=== PATIENT | male | born 1955 | race Caucasian/White ===

== ENCOUNTER 2018-04-09 11:22 | Observation (INO) ==
[2018-04-09] MEDS ORDERED: ONDANSETRON 4 MG/2 ML VIAL IVP ONE (12:23)
[2018-04-09] MEDS ORDERED: Sodium Chloride 0.9% 1,000 ML PRIMARY IV ONE (12:23)
[2018-04-09] MEDS ORDERED: HYDROCORTISONE 100 MG/2 ML IVP ONE (12:26)
[2018-04-09 12:33] LABS: BASOPHILS # (AUTO) 0.05 10*3/UL; BASOPHILS % (AUTO) 0.4 % (0-1); EOSINOPHILS # (AUTO) 0.41 10*3/UL; EOSINOPHILS % (AUTO) 3.5 % (0-8); Hematocrit [HCT] 46.5 % (42.0-52.0); Hemoglobin [HGB] 17.1 g/dL (14.0-18.0); LYMPHOCYTES # (AUTO) 2.58 10*3/uL; MEAN CORPUSCULAR HEMOGLOBIN 28.3 PG (27-31); MEAN CORPUSCULAR HGB CONC 36.8 g/dL (33-37); MEAN PLATELET VOLUME 10.2 FL (7.4-12.2); MONOCYTES % (AUTO) 18.2 % (5-15); NEUTROPHILS # (AUTO) 6.36 10*3/UL; NEUTROPHILS % (AUTO) 55.1 % (50-80); RED BLOOD COUNT 6.04 10^6/uL (4.70-6.10)
[2018-04-09 12:38] LABS: BUN/CREATININE RATIO 8.33 (6-20); PLATELET MORPHOLOGY COMMENT NORMAL MORPHOLOGY (NORM); RBC MORPHOLOGY COMMENT NORMAL MORPHOLOGY (NORM); SERUM ALBUMIN 4.5 g/dL (3.5-4.8); WBC MORPHOLOGY COMMENT NORMAL MORPHOLOGY (NORM)
--- NOTE | 2018-04-09 12:42 | EKG ---
[address] [address] Measurements Intervals [place] Rate: 93 P: 61 TN: 178 QRS: -47 QRSD: 117 T: 84 QT: 387 QTc: 437 Interpretive Statements SINUS RHYTHM LEFT ANTERIOR FASCICULAR BLOCK NONSPECIFIC T-WAVE ABNORMALITY No previous ECG available for comparison Electronically Signed On 04-09-18 16:17:44 MDT by Jose Larson [email or web address]
[2018-04-09] MEDS ORDERED: Magnesium Sulfate 2gm (Premix) 2 GM/50 ML BAG IV ONE (12:52)
[2018-04-09 12:58] LABS: LIPASE 311 IU/L (23-300)
--- NOTE | 2018-04-09 13:49 | DI ---
EXAM: CT Abdomen and Pelvis Without Intravenous Contrast CLINICAL HISTORY: Abdominal pain TECHNIQUE: Axial computed tomography images of the abdomen and pelvis without intravenous contrast. COMPARISON: No relevant prior studies available. FINDINGS: Lung bases: Unremarkable. No mass. No consolidation. ABDOMEN: Liver: Unremarkable. Gallbladder and bile ducts: Status post cholecystectomy. No ductal dilation. Pancreas: Unremarkable. No ductal dilation. Spleen: Scattered punctate calcified granulomas in the spleen. Adrenals: Unremarkable. No mass. Kidneys and ureters: 1.6 cm cortical hypodensity in the mid left kidney with internal density of 16 Hounsfield units, statistically most likely representing a simple cyst. The kidneys otherwise appear unremarkable. No radiodense renal or ureteral stones or evidence of obstructive uropathy. Stomach and bowel: Descending and sigmoid colonic diverticulosis. Minimal wall thickening at the descending/sigmoid junction is nonspecific and cannot exclude a low-grade diverticulitis. No abnormally distended loops of small bowel. GE junction and stomach appear unremarkable. PELVIS: Appendix: The appendix appears normal. Bladder: Unremarkable. No stones. Reproductive: The prostate gland and seminal vesicles appear unremarkable. ABDOMEN and PELVIS: Intraperitoneal space: Unremarkable. No free air. No significant fluid collection. Bones/joints: No acute fracture. No dislocation. Soft tissues: Unremarkable. Vasculature: Unremarkable. No abdominal aortic aneurysm. Lymph nodes: Unremarkable. No enlarged lymph nodes. IMPRESSION: 1. Descending and sigmoid colonic diverticulosis. Minimal wall thickening at the descending/sigmoid junction is nonspecific and cannot exclude a low-grade diverticulitis. No adjacent inflammatory stranding, free air, or fluid collections. 2. 1.6 cm cortical hypodensity in the mid left kidney with internal density of 16 Hounsfield units, statistically most likely representing a simple cyst.
[2018-04-09] MEDS ORDERED: Ertapenem Inj 1 GM in Sodium Chloride 0.9% 100 ML IV ONE (14:07)
--- NOTE | 2018-04-09 14:16 | PDOC ---
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 He states that he has not been feeling well for the past couple of days. He denies fevers or chills. He does not have any complaints of chest pain. He states that he normally takes 2-1/2 of his hydrocortisone pills twice a day. He did take his dose this morning. He states that he really has not eaten or drank much the past few days. He denies any vomiting although he does have nausea. He denies any blood in his stool or black stools. He denies urinary symptoms. He does not have any focal numbness or weakness in his arms or legs. Have you received a tetanus shot in the past 10 years?: Yes Past Medical History - heen HEENT History: Denies History Cardiovascular History: Hypertension Respiratory History: Denies History Gastrointestinal History: Denies History Genitourinary History: Denies History Endocrine History: Type 2 Diabetes (oral), Garland's Disease Musculoskeletal History: Denies History Neurological History: Denies History Blood Disorders: Denies History Psychiatric History: Denies History Male Reproductive History: Denies History Cancer History: Denies History In Past Year Been Physically Harmed or Verbally Threatened: No History of MDRO: No Tobacco Use: Never Smoker In the Past 12 Months, Have Used or Abuse Any Substance: None Previous Surgical History: Yes Type / Date of Surgery: Gall bladder Anesthesia Reactions: No Malignant Hyperthermia: No Family History of Malignant Hyperthermia: No Significant Family History: Heart disease, Cancer Past Medical History Reviewed: Reviewed - No Changes ROS - Limitations ROS Limitations: No Limitations Constitution: REPORTS: Weakness (General malaise and weakness). DENIES: Fever Cardiovascular: DENIES: Chest Pain, Heart Palpitations, Edema Respiratory: DENIES: Shortness Of Breath Neurological: DENIES: Headache, Numbness, Weakness Gastrointestinal: REPORTS: Abdominal Pain, Nausea. DENIES: Vomitting, Black Stools, Bloody Stools Genitourinary: REPORTS: Denies Symptoms Eyes: REPORTS: Denies Symptoms ENT: REPORTS: Denies Symptoms Skin: DENIES: Rash General Adult Exam - General Appearance General Appearance: POSITIVE: Alert, Cooperative, No Acute Distress - HEENT HEENT: POSITIVE: Head Inspection Nml, Eyes Inspection Nml, Ears Inspection Nml, Nose Inspection Nml, Pharynx Inspect. Nml, Dry Mucous Membranes - Neck Neck: POSITIVE: Normal Inspection, Lymphadenopathy - Respiratory Respiratory: POSITIVE: No Respiratory Distress, Breath Sounds Normal - Cardiovascular Cardiovascular: POSITIVE: Regular Rate & Rhythm, No Murmur Peripheral Pulses: Dorsalis-pedis (R): 2+, Dorsalis-pedis (L): 2+ - Abdomen Abdomen: Soft: (All Quadrants) Additional Abdominal Details: His abdomen is mildly distended, he does have tenderness primarily in the left mid and lower abdomen without guarding or rebound tenderness, no palpable mass - Skin Skin: POSITIVE: Normal Color, No Rash - Extremities Extremity: Normal ROM: (All Extremities), Normal Inspection: (All Extremities) - Neurological / Psychological Neurological: POSITIVE: Oriented X3, Motor Normal, Sensation Normal, Other (No focal neurologic deficit) General Adult Progress - Results Reviewed by me Xrays/CTs/US Reviewed by me: Yes Discussed with Radiologist: Yes Radiology Findings: CT scan of the abdomen and pelvis done without contrast secondary to creatinine of 1.8 reveals sigmoid diverticulosis with some nonspecific inflammatory change consistent with possible diverticulitis, no other acute findings per radiologist. Lab Results Reviewed by Me: Yes Lab Results:: Laboratory Results 3 04/09/18 04/09/18 04/09/18 12:23 12:23 12:23 WBC RBC Hgb Hct MCV MCH MCHC RDW Std Deviation RDW Coeff of Terry Plt Count MPV Immature Gran % (Auto) Neut % (Auto) Lymph % (Auto) [place] % (Auto) Eos % (Auto) Baso % (Auto) Immature Gran # (Auto) Neut # (Auto) Lymph # (Auto) Davie # (Auto) Eos # (Auto) Baso # (Auto) WBC Morphology Comment Plt Morphology Comment RBC Morph Comment Sodium Potassium Chloride Carbon Dioxide Anion Gap BUN Creatinine Estimated GFR BUN/Creatinine Ratio Glucose Calculated Osmolality Calcium Magnesium 1.5 L Total Bilirubin AST ALT Alkaline Phosphatase Troponin I < 0.012 Total Protein Albumin Globulin Albumin/Globulin Ratio Amylase Lipase TSH 4.10 3 10/14/18 10/14/18 10/14/18 12:24 12:24 12:25 WBC 11.56 H RBC 6.04 Hgb 17.1 Hct 46.5 MCV 77.0 L MCH 28.3 MCHC 36.8 RDW Std Deviation 36.3 L RDW Coeff of Terry 12.8 Plt Count 367 H MPV 10.2 Immature Gran % (Auto) 0.5 Neut % (Auto) 55.1 Lymph % (Auto) 22.3 Davie % (Auto) 18.2 H Eos % (Auto) 3.5 Baso % (Auto) 0.4 Immature Gran # (Auto) 0.06 Neut # (Auto) 6.36 Lymph # (Auto) 2.58 Davie # (Auto) 2.10 H Eos # (Auto) 0.41 Baso # (Auto) 0.05 WBC Morphology Comment Normal morphology Plt Morphology Comment Normal morphology RBC Morph Comment Normal morphology Sodium 134 L Potassium 5.1 Chloride 99 Carbon Dioxide 23 Anion Gap 12 BUN 15 Creatinine 1.8 H Estimated GFR 38 BUN/Creatinine Ratio 8.33 Glucose 184 H Calculated Osmolality 283.0 Calcium 9.9 Magnesium Total Bilirubin 1.8 H AST 53 ALT 65 Alkaline Phosphatase 81 Troponin I Total Protein 7.9 Albumin 4.5 Globulin 3.4 Albumin/Globulin Ratio 1.30 Amylase 61 Lipase 311 H TSH CBC and BMP: 04/09/18 12:24 04/09/18 12:24 - Patient's Progress MDM / ED Course: The patient does have a history of Garland's disease. His blood pressure was normal on arrival however given his current illness a stress dose of hydrocortisone was given at 100 mg. He also received 1 L bolus of normal saline as he appeared to be clinically dehydrated. Blood work reveals a mildly elevated white count, creatinine of 1.8, magnesium 1.5 and lipase mildly elevated at 311. CT scan of the abdomen and pelvis done without contrast shows evidence of sigmoid diverticulosis with nonspecific inflammatory change consistent with possible diverticulitis per radiologist. No other acute findings were noted. The patient did receive magnesium 2 g IV. These findings were discussed with the patient. Decision was made to treat the patient inpatient as he still does not feel well after administration of fluids and magnesium And he has a history of Alfredito's disease. He was given 1 g of Invanz IV after discussion with Dr. Jenkins has agreed to admit the patient for further treatment. The patient is in agreement with this plan. - Consult Counseled: POSITIVE: Patient, RE: Lab Results, RE: Radiology Results, RE: DX, RE : Need for F/U Patient Care Time - Estimated PCT Patient Care Time (In Minutes): 25 Vital Signs - Recent Vital Signs Vital Signs: Vital Signs (Last 8 hours) Temp Pulse Pulse Resp BP BP Pulse Ox 04/09/18 12:40 97.8 F 91 15 121/87 96 04/09/18 12:23 93 04/09/18 12:06 98 F 110 H 20 110/88 97 - VS Reviewed Vital Signs Reviewed: Yes Discharge Clinical Impression: Diverticulitis, Addisons disease, Dehydration, Generalized weakness Discharge Disposition: Admit to Inpatient Condition: Stable Follow Up With: NONE,NONE [Primary Care Provider] - Date Decision to Admit to Inpatient: 04/09/18 Time Decision to Admit to Inpatient: 14:00
[2018-04-09] MEDS ORDERED: ONDANSETRON 4 MG/2 ML VIAL IVP PRN (15:06)
[2018-04-09] MEDS ORDERED: LIDOCAINE W/ SODIUM BICARB 0.5 ML SYR SUBD PRN (15:06)
--- NOTE | 2018-04-09 15:14 | PDOC ---
HPI - History of Present Illness Date of Service: 04/09/18 Time of Service: 15:00 Chief Complaint: Decreased appetite, tiredness, nausea and abdominal pain of 2- 3 days duration History of Present Illness: This is a 62 years old male with medical history significant for history of [place] disease, diabetes, hypertension and possible history of A. fib who presented to the hospital with history of feeling weak, nausea and decreased appetite with generalized abdominal pain. This is Being going on for about 2 days. no fever or chills. He Said he took his medication this morning he continued not to feel well with pain and nausea and decreased appetite and because of that he came into the ER. Because of his history of [place] disease he was given hydrocortisone and fluid, a Had a CT of the abdomen which showed evidence of diverticulosis with nonspecific inflammatory change with possible diverticulitis he was given ertapenem and was admitted. Currently he feels better compared to when he came in. He is denying abdominal pain. No nausea currently. Just feel tired according to him. He denied dysuria, chest pain and no shortness of breath. Past Medical History Medical History: 1. [place] disease he had for more than 30 years he is on fludrocortisone and hydrocortisone he is not sure about the dosage though. 2. Hypertension. 3. Diabetes. 4. A. fib he is on some kind of medication was not sure about the name Surgical History: 1. History of cholecystectomy. 2. History of tonsillectomy Family History: Reviewed an Not Pertinent Past Social History: Patient does not smoke, does not drink. No drugs. 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 [place] Tobacco Use: Never Smoker Do you dip or chew tobacco: Yes In the Past 12 Months, Have Used or Abuse Any of the Following Substance: None Alcohol Use: None Medication / Allergies Allergies/Adverse Reactions: Allergies 3 Allergy/AdvReac Type Severity Reaction Status Date / Time No Known Allergies Allergy Verified 04/09/18 15:21 Review of Systems - Review of Systems All Systems: Reviewed & No Additional Complaints Except as Stated Exam - Vitals Vital Signs: Vital Signs Temperature 97.8 F Temperature Source Temporal Artery Scan Pulse Rate [Pulse Oximeter] 96 Pulse Rate 93 Respiratory Rate 20 Blood Pressure [Right Arm] 121/87 Blood Pressure [Left Arm] 110/88 Pulse Ox 96 Oxygen Delivery Method Room Air Height 5 ft 10 in Weight 260 lb 6 oz - General General Appearance: No Acute Distress, Cooperative, Obese - Head Head Exam: Normal Inspection, Atraumatic - Eye Eye Exam: POSITIVE: Normal Appearance - ENT ENT Exam: POSITIVE: Normal Exam - Neck Neck Exam: Normal Inspection - Respiratory Respiratory Exam: POSITIVE: Clear to Auscultation - Bilaterally - Cardiovascular Cardiovascular Exam: POSITIVE: RRR - GI/Abdominal GI/Abdominal Exam: POSITIVE: Normal Bowel Sounds, Non Tender, Non Distended, Soft, No Organomegaly Additional GI/Abdominal Exam Details: His abdomen is soft there is no organomegaly. There is some tenderness diffuse in the periumbilical area. - Rectal Rectal Exam: POSITIVE: Deferred - External Exam: POSITIVE: Deferred Exam: POSITIVE: Deferred - Extremities Extremities Exam: POSITIVE: Normal Inspection - Back Back Exam: POSITIVE: Normal Inspection - Neurological Neurological Exam: POSITIVE: Alert, Oriented x 3, CN II-XII Intact, No Facial Droop, Speech Intact / Clear, Moves All Extremities Equally - Psychiatric Psychiatric Exam: POSITIVE: Normal Affect Results - Labs CBC and BMP: 04/09/18 12:24 04/09/18 12:24 - EKG Data -: EKG Interpreted by Me Rate: Normal EKG Shows Normal: Sinus Rhythm (EKG shows Left axis deviation) - Imaging Status: Report Reviewed by Me (CT abdomen 1. Descending and sigmoid colonic diverticulosis. Minimal wall thickening at the descending/sigmoid junction is nonspecific and cannot exclude a low-grade diverticulitis. No adjacent inflammatory stranding, free air, or fluid collections. 2. 1.6 cm cortical hypodensity in the mid left kidney with internal density of 16 Hounsfield units , statistically most likely representing a simple cyst.) Assessment and Plan - Patient Problems (1) Diverticulitis Current Visit: Yes Status: Acute Comment: There is possible diverticulitis on the CT of the Abdomen will treat him with IV antibiotics this was started in the ER will continue with ertapenem. Will put him on some IV fluid and put him on clear liquid. Code(s): K57.92 - Diverticulitis of intestine, part unspecified, without perforation or abscess without bleeding (2) Addisons disease Current Visit: Yes Status: Acute Comment: He was giving a dosage of hydrocortisone will continue with hydrocortisone stress dose. Code(s): E27.1 - Primary adrenocortical insufficiency (3) Diabetes Current Visit: Yes Status: Acute Comment: Will watch his blood sugar will verify his medications. Code(s): E11.9 - Type 2 diabetes mellitus without complications (4) Hypertension Current Visit: Yes Status: Acute Comment: We'll hold lisinopril for now will watch his blood pressure. Code(s): I10 - Essential (primary) hypertension (5) Elevated lipase Current Visit: Yes Status: Acute Comment: minimal elevation in lipase of uncertian significance, will repeat it tomorrow. Code(s): R74.8 - Abnormal levels of other serum enzymes
[2018-04-09] MEDS ORDERED: MORPHINE SULFATE 2 MG/1 ML IVP PRN (15:24)
[2018-04-09] MEDS ORDERED: Acetaminophen 1000mg Inj 1,000 MG/100 ML VIAL IV PRN (15:25)
[2018-04-09] MEDS: Sodium Chloride 0.9% 1,000 ML PRIMARY IV SCH ×2 (15:54→23:26)
[2018-04-09] MEDS: FLUDROCORTISONE ACETATE 0.1 MG TABLET PO SCH (20:16)
[2018-04-09] MEDS: HYDROCORTISONE 100 MG/2 ML IVP SCH (20:16)
[2018-04-09] MEDS ORDERED: FLUDROCORTISONE ACETATE 0.1 MG TABLET PO SCH (21:00)
[2018-04-09] MEDS ORDERED: HYDROCORTISONE 100 MG/2 ML IVP SCH (21:00)
[2018-04-10 01:44] LABS: CLARITY,URINE CLEAR (CLEAR); COLOR,URINE YELLOW (Y); PH,URINE 5.5 (5.0-8.5); URINE SAMPLE TYPE CLEAN CATCH URINE
[2018-04-10 01:45] LABS: PROTEIN,URINE 30 mg/dl (NEG)
[2018-04-10 01:46] LABS: BILIRUBIN,URINE NEGATIVE (NEG); GLUCOSE, URINE (UA) 100 mg/dL (NEG); OCCULT BLOOD,URINE TRACE (NEG); UROBILINOGEN,URINE 0.2 EU/dL (0.2)
[2018-04-10 05:20] LABS: BASOPHILS # (AUTO) 0.01 10*3/UL; BASOPHILS % (AUTO) 0.1 % (0-1); EOSINOPHILS # (AUTO) 0.04 10*3/UL; EOSINOPHILS % (AUTO) 0.4 % (0-8); Hematocrit [HCT] 42.8 % (42.0-52.0); LYMPHOCYTES # (AUTO) 1.25 10*3/uL; MEAN CORPUSCULAR HEMOGLOBIN 27.5 PG (27-31); MEAN CORPUSCULAR VOLUME 78.4 FL (80-90); MONOCYTES # (AUTO) 0.82 10*3/UL (0.3-0.8); MONOCYTES % (AUTO) 9.2 % (5-15); NEUTROPHILS # (AUTO) 6.82 10*3/UL; NEUTROPHILS % (AUTO) 76.1 % (50-80); RED BLOOD COUNT 5.46 10^6/uL (4.70-6.10)
[2018-04-10 05:27] LABS: BLOOD UREA NITROGEN 11 mg/dL (7-22); BUN/CREATININE RATIO 9.16 (6-20); LIPASE 544 IU/L (23-300)
[2018-04-10 05:49] LABS: PLATELET MORPHOLOGY COMMENT NORMAL MORPHOLOGY (NORM); RBC MORPHOLOGY COMMENT NORMAL MORPHOLOGY (NORM); WBC MORPHOLOGY COMMENT NORMAL MORPHOLOGY (NORM)
[2018-04-10] MEDS: Sodium Chloride 0.9% 1,000 ML PRIMARY IV SCH ×2 (06:26→15:34)
--- NOTE | 2018-04-10 07:16 | PDOC(PROG) ---
Date of Service: 04/10/18 Time of Service: 07:00 Interval History: Subjective Patient feels better today compared to yesterday. There is no significant abdominal pain. Nausea seemed to be gone also. His appetite he said is picking up. Objective : Data - Labs CBC and BMP: 04/10/18 04:35 04/10/18 04:35 Objective : Exam - General General Appearance: No Acute Distress, Cooperative - Head Head Exam: Normal Inspection - Eye Eye Exam: Normal Appearance - ENT ENT Exam: Normal Exam - Neck Neck Exam: Normal Inspection - Respiratory Respiratory Exam: Clear to Auscultation - Bilaterally - Cardiovascular Cardiovascular Exam: RRR - GI/Abdominal GI/Abdominal Exam: Normal Bowel Sounds, Non Tender, Non Distended, Soft, No Organomegaly - Rectal Rectal Exam: Deferred - External Exam: Deferred Exam: Deferred - Extremities Extremities Exam: Normal Inspection - Back Back Exam: Normal Inspection - Neurological Neurological Exam: Alert, Oriented x 3, CN II-XII Intact, No Facial Droop, Speech Intact / Clear, Moves All Extremities Equally - Psychiatric Psychiatric Exam: Normal Affect - Integumentary Integumentary Exam: Normal Color Assessment and Plan - Patient Problems (1) Diverticulitis Current Visit: Yes Status: Acute Comment: Continue current antibiotics. I think we'll cut back on his IV fluid. Continue clear liquids for today. I think we'll keep him another day if things are stable tomorrow probably home tomorrow Code(s): K57.92 - Diverticulitis of intestine, part unspecified, without perforation or abscess without bleeding (2) Addisons disease Current Visit: Yes Status: Acute Comment: We did verify the dosage of his medication he is on hydrocortisone 50 mg twice a day and Florinef 0.3 mg twice a day. I did tell him he is taking a high dosage and he said that they tried before to cut it back but he didn't tolerate that. So he's been on high dosage Code(s): E27.1 - Primary adrenocortical insufficiency (3) Diabetes Current Visit: Yes Status: Acute Comment: will Put him on sliding scale. Continue holding the metformin and the glimperide Code(s): E11.9 - Type 2 diabetes mellitus without complications (4) Hypertension Current Visit: Yes Status: Acute Comment: We'll hold lisinopril, his potassium is high today. He was on lisinopril and he took it yesterday but will hold it today. Code(s): I10 - Essential (primary) hypertension (5) Elevated lipase Current Visit: Yes Status: Acute Comment: Lipase is elevated today however he is not complaining from pain today. I think we can continue the clear liquid. Code(s): R74.8 - Abnormal levels of other serum enzymes
[2018-04-10] MEDS ORDERED: AMIODARONE 200 MG TABLET PO SCH (09:00)
[2018-04-10] MEDS: PANTOPRAZOLE IV 40 MG VIAL IVP SCH (09:33)
[2018-04-10] MEDS: FLUDROCORTISONE ACETATE 0.1 MG TABLET PO SCH ×2 (09:33→20:18)
[2018-04-10] MEDS: HYDROCORTISONE 100 MG/2 ML IVP SCH ×2 (09:33→20:18)
[2018-04-10] MEDS: Insulin Lispro Flexpen 300 UNIT/3 ML INSULN.PEN SUBCUT SCH ×2 (11:12→17:12)
[2018-04-10] MEDS ORDERED: Ertapenem Inj 1 GM in Sodium Chloride 0.9% 100 ML IV SCH (14:00)
[2018-04-11] MEDS: Sodium Chloride 0.9% 1,000 ML PRIMARY IV SCH (03:49)
[2018-04-11 06:03] LABS: BLOOD UREA NITROGEN 9 mg/dL (7-22); LIPASE 240 IU/L (23-300); SERUM ALBUMIN 3.7 g/dL (3.5-4.8)
[2018-04-11 06:50] VITALS: BP 147/70; RESP 16; TEMP 97.3; O2SAT 93
[2018-04-11] MEDS: Insulin Lispro Flexpen 300 UNIT/3 ML INSULN.PEN SUBCUT SCH (07:04)
--- NOTE | 2018-04-11 08:12 | DCSUMMARY ---
Hospitalization Summary Admit Date: 04/09/2018 Discharge Date: 04/11/18 Hospital Course: Discharge diagnoses 1. Minimal wall thickening of the sigmoid/descending junction nonspecific and cannot exclude low-grade diverticulitis. 2. Elevated lipase uncertain significance, normalized quickly 3. History of Alfredito disease 4. Acute renal failure, resolved 5. History of diabetes 6. History of hypertension 7. History of A. fib Hospital course This is a 62 years old male with medical history significant for history of Alfred[place] disease, diabetes, hypertension and possibly a history of A. fib who presented to the hospital with history of feeling weak, nauseated, decreased appetite and generalized abdominal pain. This was going on for about 2 days before presentation. There was no fever no chills. He took his medication on the day he presented but he continued not to feel well with nausea and decreased appetite and because of that he came into the ER. Because of the history of for [place] disease he was given hydrocortisone, fluid and had a CT of the abdomen which showed evidence of diverticulosis with nonspecific inflammatory change with possible diverticulitis. He was given ertapenem and was admitted. When I saw him he was feeling better compared to when he came in. He did have some mild tenderness in periumbilical area. He did have a mild elevation in his white count 11,000 when he came in, his creatinine was 1.8. Lipase was mildly elevated at 311. We continued with fluids, antibiotics and put him on clear liquid. We did increase the dosage of his hydrocortisone to double dosage from what he was taking. He was on 50 mg twice a day we put him on 100 mg twice a day. The next day he was feeling better and abdominal pain resolved with no tenderness in his abdomen. His lipase went up to 500. On the day of discharge he was feeling much better, There was no abdominal pain no tenderness exam was not remarkable. His lipase went down to 240. We advanced his diet and he tolerated his diet. He was discharged home on a course of antibiotics for possible diverticulitis. I did tell him to follow-up with his physician as likely he need a colonoscopy. The significance of elevated lipase is unclear it normalized quickly. CT showed no evidence of pancreatitis. Because of his elevated creatinine at the time of admission we told him to hold lisinopril until he sees his physician. Did instruct him to double the dosage of the hydrocortisone for the next 2 days and he can go back to usual dosage. Laboratory Results 04/11/18 Range/Units 04:50 Sodium 139 (135-145) meq/L Potassium 4.4 D (3.8-5.2) meq/L Chloride 108 (98-112) meq/L Carbon Dioxide 23 (23-33) meq/L Anion Gap 8 (5-20) BUN 9 (7-22) mg/dL Creatinine 1.0 (0.70-1.50) mg/dL Estimated GFR > 60 (>60 ml/min/1.73m(2)) BUN/Creatinine Ratio 9.00 (6-20) Glucose 171 H (78-110) mg/dL Calculated Osmolality 290.0 (267-292) mOsm/kg Calcium 9.2 (8.7-10.7) mg/dL Total Bilirubin 0.4 (0.3-1.2) mg/dL AST 21 (21-57) IU/L ALT 42 (21-72) IU/L Alkaline Phosphatase 59 (38-126) IU/L Total Protein 6.7 (6.1-8.0) g/dL Albumin 3.7 (3.5-4.8) g/dL Globulin 3.0 (2.50-4.10) g/dL Albumin/Globulin Ratio 1.20 L (1.3-2.0) mg/g Amylase 47 (30-110) U/L Lipase 240 (23-300) IU/L Discharge instructions Diet regular Activity as started Medications Current Medication(s) 3 Medication Instructions Recorded Confirmed Type Amiodarone HCl 200 mg PO .TUE/TUE/Tue04/10/18 04/10/18 History Cyclobenzaprine HCl 10 mg PO TID PRN 04/10/18 04/10/18 History Fludrocortisone Acetate 0.3 mg PO BID 04/10/18 04/10/18 History Glimepiride 1 mg PO DAILY 04/10/18 04/10/18 History Hydrocortisone 50 mg PO BID 04/10/18 04/10/18 History Metformin HCl 1,000 mg PO BID 04/10/18 04/10/18 History Amoxicillin/Potassium Clav 1 ea PO BID #8 tab 04/11/18 Rx [Augmentin 875-125 Tablet] Follow-up with PCP in 1-2 weeks Condition at discharge was stable for discharge Exam - Vitals Vital Signs: Vital Signs Temperature 97.3 F Temperature Source Temporal Artery Scan Pulse Rate [Apical] 84 Pulse Rate [Pulse Oximeter] 75 Pulse Rate 92 Respiratory Rate 16 Blood Pressure [Right Arm] 147/70 Blood Pressure [Left Arm] 123/79 Blood Pressure 111/72 Pulse Ox 93 Oxygen Flow Rate 2 Oxygen Delivery Method Room Air Height 5 ft 10 in Weight 261 lb - General General Appearance: No Acute Distress, Cooperative - Head Head Exam: Normal Inspection - Eye Eye Exam: POSITIVE: Normal Appearance - ENT ENT Exam: POSITIVE: Normal Exam - Neck Neck Exam: Normal Inspection - Respiratory Respiratory Exam: POSITIVE: Clear to Auscultation - Bilaterally - Cardiovascular Cardiovascular Exam: POSITIVE: RRR - GI/Abdominal GI/Abdominal Exam: POSITIVE: Normal Bowel Sounds, Non Tender, Non Distended, Soft, No Organomegaly - Rectal Rectal Exam: POSITIVE: Deferred - External Exam: POSITIVE: Deferred - Extremities Extremities Exam: POSITIVE: Normal Inspection - Neurological Neurological Exam: POSITIVE: Alert, Oriented x 3, CN II-XII Intact, No Facial Droop, Speech Intact / Clear - Psychiatric Psychiatric Exam: POSITIVE: Normal Affect - Integumentary Integumentary Exam: POSITIVE: Normal Color Patient Problems - Patient Problem List (1) Diverticulitis Status: Acute Code(s): K57.92 - Diverticulitis of intestine, part unspecified , without perforation or abscess without bleeding Category: Medical (2) Addisons disease Status: Acute Code(s): E27.1 - Primary adrenocortical insufficiency Category : Medical (3) Diabetes Status: Acute Code(s): E11.9 - Type 2 diabetes mellitus without complications Category: Medical (4) Hypertension Status: Acute Code(s): I10 - Essential (primary) hypertension Category: Medical (5) Elevated lipase Status: Acute Code(s): R74.8 - Abnormal levels of other serum enzymes Category: Medical
[2018-04-11] MEDS: HYDROCORTISONE 100 MG/2 ML IVP SCH (09:47)
[2018-04-11] MEDS: PANTOPRAZOLE IV 40 MG VIAL IVP SCH (09:47)
[2018-04-11] MEDS: FLUDROCORTISONE ACETATE 0.1 MG TABLET PO SCH (09:47)
== END 2018-04-11 10:39 | disposition home or self-care (01) ==
LOC: ER 11:22 → MED/SURG 11:22
PROVIDERS: ADMIT Internal Medicine; ATTEND Internal Medicine